=== PATIENT | male | born 1980 | race African-American/Black ===

== ENCOUNTER → 2021-02-19 11:07 | Outpatient (CLI) | payer OTHER, MEDICAID, SELFPAY ==
--- NOTE | 2021-02-19 | DI.CT.S_ITS ---
PROCEDURE: CT ABDOMEN PELVIS WO/W CON INDICATIONS: Personal history of urinary calculi TECHNIQUE: After the administration of oral contrast, 5 mm thick sections acquired from the diaphragms to the iliac crests. After the administration of intravenous contrast, 5 mm thick sections acquired from the diaphragms to the symphysis. 5 mm thick coronal and sagittal reformats were acquired. For radiation dose reduction, the following was used: automated exposure control, adjustment of mA and/or kV according to patient size. COMPARISON: None. FINDINGS: Image quality: Excellent. ABDOMEN: Lung bases: Lung bases are clear. Heart size is normal. Solid organs: Liver is normal in size and enhancement. Gallbladder demonstrates no wall thickening or pericholecystic fluid . Biliary system is non-dilated. Pancreas enhances normally. Spleen is normal in size and enhancement. No adrenal nodules. Both kidneys are normal in size. Punctate nephrolithiasis without evidence of hydronephrosis. Bowel and peritoneum: No evidence of intestinal obstruction. Large stool burden throughout the colon. No free fluid or air. Normal appendix. Nodes and vessels: No retroperitoneal or mesenteric adenopathy by size criteria. Aorta and inferior vena are normal in caliber. Miscellaneous: No ventral hernias. PELVIS: Genitourinary: Urinary bladder is not well distended. Miscellaneous: No inguinal hernias or adenopathy. Bones: Moderate disc height loss with vacuum phenomena and minimal retrolisthesis at L5-S1. 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 No vertebral body compression fractures. IMPRESSION: 1. Large stool burden throughout the colon. 2. Punctate nephrolithiasis without evidence of obstructive uropathy. Dictated by: Michael Perez M.D. on 02/19/2021 at 13:17 Approved by: Michael Perez M.D. on 02/19/2021 at 13:23
[2021-02-19 11:47] LABS: BUN Creatinine Ratio 12.3 (6-22); Blood Urea Nitrogen 17 mg/dL (9-20); Estimated Glomerular Filt Rate 56.8 mL/min (>60)
== END ==
PROVIDERS: PCP Family Medicine; Referring Provider Urology; Visit Provider Urology
DX: R31.29 Other microscopic hematuria (principal); Z87.442 Personal history of urinary calculi
CPT/HCPCS: 36415; 74178; 82565; 84520

== ENCOUNTER → 2023-09-15 15:36 | Outpatient (CLI) | payer OTHER, MEDICAID, SELFPAY ==
--- NOTE | 2023-09-15 | DI.MRI.S_ITS ---
PROCEDURE: MR SHOULDER LT WO CON INDICATIONS: LEFT SHOULDER PAIN TECHNIQUE: Noncontrast oblique coronal T2 fast spin echo with fat saturation, oblique sagittal T1 spin echo and T2 fast spin echo with fat saturation, axial T1 spin echo and T2 fast spin echo with fat saturation through the shoulder. COMPARISON: [facility] [place], CR, XR SHOULDER 2+ VIEWS LEFT, 08/16/2023, 14:53. FINDINGS: Image quality: Somewhat limited evaluation given patient motion. Rotator cuff: The supraspinatus and the infraspinatus is unremarkable. The teres minor is unremarkable. The subscapularis is unremarkable. No muscle edema or fatty atrophy. Bones and bursae: The acromioclavicular joint is unremarkable. Type 1 acromion. No os acromiale. Mild subacromial/subdeltoid bursitis. No acute fracture. Capsule and soft tissues: Tear of the superior labrum. Moderate tenosynovitis of the extra-articular biceps tendon, which is intact. Severe tendinosis of the distal intra-articular biceps tendon. Small glenohumeral effusion. Mild subcoracoid bursitis. Edema at the rotator cuff interval, suggestive of adhesive capsulitis. IMPRESSION: 1. Limited evaluation given patient motion. 2. Moderate tenosynovitis of the extra-articular biceps tendon. Severe tendinosis of the distal intra-articular biceps tendon. 3. Findings suggestive of adhesive capsulitis. Dictated by: Phylicia Lobato M.D. on 09/15/2023 at 20:55 Approved by: Phylicia Lobato M.D. on 09/15/2023 at 21:02
== END ==
PROVIDERS: PCP Internal Medicine; Referring Provider Orthopaedic Surgery; Visit Provider Orthopaedic Surgery
DX: M65.822 Other synovitis and tenosynovitis, left upper arm (principal); M25.512 Pain in left shoulder
CPT/HCPCS: 73221

== ENCOUNTER → 2024-12-17 07:45 | Outpatient (CLI) | payer OTHER, SELFPAY ==
--- NOTE | 2024-12-17 07:47 | DI.ECHO.S_ITS ---
[facility]+ [facility] : : [id number] : : [place] : : [id number] : : Phone: [phone] Echocardiogram Report + + :Name: MARY ANGELA Study Date: 12/17/2024 Height: 69 in : :Hospital ReadingLocation: Weight: 187 lb : : Gender: Male BSA: 2.0 m2 : :: 1980 Age: 44 yrs BP: 175/114 mmHg: :Reason For Study: HYPERTENSION : :Ordering Physician: MEHREEN, : :XIMENA Performed By: Micky Steiner : :Referring: XIMENA ALVA : + + Interpretation Summary 1) Normal left ventricular thickness and size with low normal systolic function (EF 50-55%). 2) Normal right ventricular size and function. 3) There is mild to moderate aortic regurgitation. 4) The aortic root is mildly dilated at 4.1cm. 5) No prior Echo available for comparison. Procedure: A two-dimensional transthoracic echocardiogram with color flow and Doppler was performed. The study quality was technically good. There is no prior echocardiogram noted for this patient. The patient was in normal sinus rhythm during the exam. Left Ventricle: The left ventricle is normal in size. Left ventricular wall thickness is mildly increased. There is no ventricular septal defect visualized. The ejection fraction is estimated to be 50-55%. There are no focal wall motion abnormalities. Diastolic parameters suggest probable normal left ventricular diastolic function and normal filling pressures. Right Ventricle: The right ventricle is normal size. Right ventricular systolic function is at the lower limits of normal. Atria: The left atrial size is normal. Right atrial size is normal. There is no Doppler evidence for an interatrial shunt. Mitral Valve: The mitral valve leaflets appear mildly thickened. There is no mitral regurgitation noted. Aortic Valve: The aortic valve is trileaflet. The aortic valve opens well. There is no aortic valve stenosis. There is mild to moderate aortic regurgitation. There is an eccentric jet of aortic insufficiency directed against the anterior mitral leaflet. Tricuspid Valve: The tricuspid valve leaflets are thin and pliable. No tricuspid regurgitation. Pulmonary artery pressures cannot be estimated because of the lack of a measurable TR jet velocity. Pulmonic Valve: The pulmonic valve is not well seen, but is grossly normal. There is trace pulmonic regurgitation. Great Vessels: The aortic root is mildly dilated. The dimensions of the ascending aorta are normal. The pulmonary artery is normal size. The IVC is of normal diameter and collapses greater than 50% with a sniff. This suggests a low right atrial pressure of 3 mm Hg. Pericardium/ Pleura There is no pericardial effusion. There is no pleural effusion. MMode/2D Measurements & Calculations LVIDd: 5.1 cm LVOT diam: 2.4 cm LVIDs: 3.9 cm Ao root diam: 4.1 cm FS: 23.3 % asc Aorta Diam: 3.4 cm EPSS: 0.38 cm IVSd: 1.3 cm LVPWd: 1.2 cm LV craven. diameter/BSA (cm/m^2): 2.6 LV sys. diameter/BSA (cm/m^2): 2.0 LA A2 area: 21.0 cm2 RA long axis: 4.7 cm LA A4 area: 19.7 cm2 RA area: 14.7 cm2 LA length (vol): 5.2 cm RA vol: 39.2 ml LA vol: 67.6 ml RA : 19.5 ml/m2 LA vol index: 33.7 ml/m2 IVC diam: 1.6 cm RVD1 (basal): 3.6 cm RVD2 (mid): 2.8 cm TAPSE: 1.8 cm Doppler Measurements & Calculations Ao V2 max: 152.6 cm/sec LVOT Max Mendel: 117.8 cm/sec Ao V2 mean: 98.7 cm/sec LV V1 max P.6 mmHg Ao max P.3 mmHg LV V1 VTI: 26.6 cm Ao mean P.5 mmHg SHANIA(I,D): 3.7 cm2 Ao V2 VTI: 32.3 cm SHANIA(V,D): 3.5 cm2 sev ratio: 0.82 SHANIA indexed to BSA (cm^2/m^2): 1.8 MV E max mendel: 71.7 cm/sec PA V2 max: 90.1 cm/sec MV A max mendel: 80.5 cm/sec PA V2 mean: 60.7 cm/sec MV E/A: 0.89 PA mean P.7 mmHg Med Peak E' Mendel: 5.7 cm/sec PA pr(Accel): 34.5 mmHg E/E' med: 12.6 Lat Peak E' Mendel: 9.0 cm/sec E/E' lat: 8.0 E/e' average: 10.3 MV dec time: 0.22 sec SV(LVOT): 119.7 ml Reading Physician:11:02 AM
== END ==
LOC: ECHO 07:46
PROVIDERS: PCP Nurse Practitioner Family; Referring Provider Nurse Practitioner Family; Visit Provider Internal Medicine Cardiovascular Disease
DX: I1A.0 Resistant hypertension (principal); I35.1 Nonrheumatic aortic (valve) insufficiency; I77.810 Thoracic aortic ectasia
CPT/HCPCS: 93306